=== PATIENT | male | born 1995 | race African-American/Black ===

== ENCOUNTER 2018-03-25 15:43 | Emergency (ER) ==
[~2018-03-25] VITALS: Ht 188 cm; Wt 102.3 kg
== END 2018-03-25 16:25 | disposition left against medical advice (07) ==
LOC: COL.ER 15:43
DX: S51.001A Unspecified open wound of right elbow, initial encounter (principal)

== ENCOUNTER 2018-11-23 15:22 | Emergency (ER) | payer SELFPAY ==
[~2018-11-23] VITALS: Ht 188 cm; Wt 109.1 kg
[2018-11-23 15:25] VITALS: TEMP 98.6
[2018-11-23] MEDS ORDERED: CRUTCHES MC (17:37)
[2018-11-23 17:55] VITALS: BP 125/79; PULSE 86
== END 2018-11-23 18:20 | disposition home or self-care (01) ==
LOC: COL.ER 15:22
DX: S82.402A Unspecified fracture of shaft of left fibula, initial encounter for closed fracture (principal); F17.210 Nicotine dependence, cigarettes, uncomplicated; V29.9XXA Motorcycle rider (driver) (passenger) injured in unspecified traffic accident, initial encounter
CPT/HCPCS: J2405; J2704; J3010; J7030